=== PATIENT | female | born 2000 | race Hispanic/Latino ===

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

== ENCOUNTER 2020-05-19 13:58 | Emergency (ER) | payer OTHER ==
--- OUTSIDE RECORDS SUMMARY | 2020-05-19 14:08 | XMS REPORT | Continuity of Care Document ---
:2000 Author Organization [facility] t Address [address] [place] [address] Care Team Providers Name Role Phone 3, [facility] Room Attending Clinician Unavailable Doctor Unassigned, Name Attending Clinician Unavailable Problems This patient has no known problems. Allergies, Adverse Reactions, Alerts This patient has no known allergies or adverse reactions. Medications This patient has no known medications. Procedures This patient has no known procedures. Encounters Start End Encounter Admission Attending Care Care Encounter Source Date/Time Date/Time Type Type Clinicians Facility Department ID 2020-03-19 2020-03-19 [facility], [facility]ERS[facility] [id number] 14:21:22 15:21:22 Visit [facility] Room HEALTH [id number] [facility] [id number] 2020-03-19 2020-03-19 Orders Doctor CHAU [id number] 00:00:00 00:00:00 Only Unassigned, SAM [id number] [place] [id number] Results This patient has no known results.
--- NOTE | 2020-05-19 15:11 | ER ---
Nurse's Notes [facility] Name: Petty Stevens Age: 20 yrs Sex: Female : 2000 Arrival Date: 05/19/2020 Time: 14:03 Bed Waiting Private MD: Diagnosis: Presentation: 05/19 14:46 Chief complaint: Patient states: lower abd pain and low back pain that began today at aa5 0800 and has been constant since 1000. Pt was cleared by L\\T\\D just [employer]IST[employer] and pt states "L\\T\\D said I was not having contractions". Coronavirus screen: Client denies travel out of the [place] in the last 14 days. At this time, the client does not indicate any symptoms associated with coronavirus-19. Ebola Screen: Patient negative for fever greater than or equal to 101.5 degrees Fahrenheit, and additional compatible Ebola Virus Disease symptoms. Initial Sepsis Screen: Does the patient meet any 2 criteria? No. Patient's initial sepsis screen is negative. Does the patient have a suspected source of infection? No. Patient's initial sepsis screen is negative. Risk Assessment: Do you want to hurt yourself or someone else? Patient reports no desire to harm self or others. Onset of symptoms was May 19, 2020. 14:46 Acuity: DEYSI 3 aa5 14:46 Method Of Arrival: Ambulatory aa5 Historical: - Allergies: 14:48 No Known Allergies; aa5 - PMHx: 14:48 None; aa5 - PSHx: 14:48 None; aa5 - Immunization history:: Adult Immunizations unknown. - Social history:: Smoking status: Patient denies any tobacco usage or history of. Vital Signs: 14:46 BP 107 / 73; Pulse 110; Resp 16 S; Temp 97.1(TE); Pulse Ox 98% on R/A; Weight 60.33 kg aa5 (R); Height 5 ft. 3 in. (160.02 cm) (R); Pain 5/10; 14:46 Body Mass Index 23.56 (60.33 kg, 160.02 cm) aa5 ED Course: 14:03 Patient arrived in ED. mr 14:46 Arm band placed on. aa5 14:47 Triage completed. aa5 Administered Medications: No medications were administered Outcome: 15:10 Patient left the ED. aa5 Signatures: Nishi Qiu mr Russell, Kelly, RN RN aa5
[2020-05-19 16:02] VITALS: BP 107/73; TEMP 97.1; O2SAT 98
== END 2020-05-19 15:10 | disposition left against medical advice (07) ==
LOC: ER 13:58
DX: Z53.21 Procedure and treatment not carried out due to patient leaving prior to being seen by health care provider (principal)
CPT/HCPCS: 99281